=== PATIENT | male | born 1945 | race Two or more races ===

== ENCOUNTER 2021-10-30 11:45 | Inpatient (IN) | payer MEDICARE, MEDICAID ==
[~2021-10-30] VITALS: Ht 167.6 cm; Wt 76.7 kg
[2021-10-30 13:00] LABS: CHLORIDE 105 mEq/L (98-107)
[2021-10-30 13:06] LABS: BASOPHILS % 0.3 % (0.0-2.0); EOSINOPHILS % 1.3 % (0.0-5.0); HEMATOCRIT. 40.3 % (42.0-52.0); HEMOGLOBIN. 13.3 g/dL (14.0-18.0); LYMPHOCYTES % 10.2 % (20.0-50.0); MEAN CORPUSCULAR HEMOGLOBIN 29.9 pg (28.0-32.0); MEAN CORPUSCULAR VOLUME 90.9 fL (80.0-94.0); MEAN PLATELET VOLUME 8.2 fl (7.4-10.4); MONOCYTES % 8.9 % (2.0-8.0); NEUTROPHILS % 79.3 % (40.0-76.0); PLATELET 163 x1000/uL (130-400); RED BLOOD CELL COUNT 4.44 mill/uL (4.7-6.1); RED CELL DISTRIBUTION WIDTH 13.4 % (11.6-14.6)
[2021-10-30] MEDS ORDERED: CEFTRIAXONE 1 G PREMIX 50 ML IV ONE (14:00)
[2021-10-30] MEDS ORDERED: AZITHROMYCIN 500MG/250ML 250 ML IV ONE (14:00)
[2021-10-30] MEDS ORDERED: AZITHROMYCIN 500MG/250ML 250 ML IV NR (18:45)
[2021-10-30] MEDS ORDERED: CEFTRIAXONE 1 G PREMIX 50 ML IV NR (18:45)
[2021-10-31 08:35] VITALS: BP 180/80
[2021-10-31 08:45] VITALS: BP 180/80
[2021-10-31] MEDS ORDERED: IPRATROPIUM/ALBUTEROL 0.5-3(2.5)MG/3ML NEB HHN PRN (09:30)
[2021-10-31] MEDS ORDERED: CLONIDINE 0.1MG TABLET PO PRN (09:30)
[2021-10-31] MEDS ORDERED: PANT40TA51 PO (10:24)
[2021-10-31] MEDS ORDERED: LOSA50TA41 PO (10:24)
[2021-10-31] MEDS ORDERED: WARF-53 MT (10:24)
[2021-10-31] MEDS ORDERED: TAMS-11 PO (10:24)
[2021-10-31] MEDS ORDERED: ISOS10TA2 PO (10:24)
[2021-10-31] MEDS: ASPIRIN 81MG TABLET PO SCH (10:35)
[2021-10-31] MEDS ORDERED: *PATIENT'S OWN MEDICATION STORAGE XX SCH (11:15)
[2021-10-31 12:00] VITALS: BP 154/78
[2021-10-31] MEDS ORDERED: GUAIFENESIN/CODEINE 100-10MG/5ML UDC PO PRN (12:15)
[2021-10-31] MEDS ORDERED: AZITHROMYCIN 500MG/250ML 250 ML IV SCH (12:15)
[2021-10-31] MEDS ORDERED: GUAIFENESIN/CODEINE 200-20MG/10ML UDC PO PRN (12:45)
[2021-10-31 12:50] LABS: D-DIMER 0.58 mg/L FEU (<0.50); INR 1.7; PROTHROMBIN TIME 17.7 sec (9.6-11.0)
[2021-10-31] MEDS ORDERED: HYDRALAZINE 20MG/ML VIAL IV PRN (13:15)
[2021-10-31] MEDS: ISOSORBIDE DINITRATE 10MG TABLET PO SCH ×2 (14:00→17:00)
[2021-10-31] MEDS: LOSARTAN POTASSIUM 50 MG TABLET PO SCH (14:01)
[2021-10-31] MEDS: CEFTRIAXONE 1,000 MG in DEXTROSE 5% WATER 50 ML IV SCH (15:53)
[2021-10-31 16:00] VITALS: BP 136/75
[2021-10-31] MEDS ORDERED: WARFARIN SODIUM 7.5MG TABLET PO SCH (18:00)
[2021-10-31] MEDS: AZITHROMYCIN 500 MG in DEXT 5% WATER 250 ML IV SCH (18:19)
[2021-10-31 20:45] VITALS: BP 104/59
[2021-11-01 00:49] VITALS: BP 128/83
[2021-11-01] MEDS: IPRATROPIUM/ALBUTEROL 0.5-3(2.5)MG/3ML NEB HHN SCH ×3 (01:22→15:29)
[2021-11-01 04:00] VITALS: BP 131/73
[2021-11-01 07:51] LABS: CHLORIDE 104 mEq/L (98-107)
[2021-11-01 08:00] VITALS: BP 131/72
[2021-11-01 08:10] LABS: MEAN CORPUSCULAR HEMOGLOBIN 30.1 pg (28.0-32.0); MEAN CORPUSCULAR VOLUME 90.4 fL (80.0-94.0); MEAN PLATELET VOLUME 8.5 fl (7.4-10.4); PLATELET 160 x1000/uL (130-400); RED BLOOD CELL COUNT 4.65 mill/uL (4.7-6.1); RED CELL DISTRIBUTION WIDTH 13.3 % (11.6-14.6)
[2021-11-01] MEDS: LOSARTAN POTASSIUM 50 MG TABLET PO SCH (08:52)
[2021-11-01] MEDS: ASPIRIN 81MG TABLET PO SCH (08:52)
[2021-11-01] MEDS: ISOSORBIDE DINITRATE 10MG TABLET PO SCH ×2 (08:53→17:49)
[2021-11-01] MEDS ORDERED: PANTOPRAZOLE 40MG DR TABLET PO SCH (09:00)
[2021-11-01] MEDS ORDERED: TAMSULOSIN HCL 0.4MG SR CAPSULE PO SCH (09:00)
[2021-11-01 09:33] LABS: INR 1.4; PROTHROMBIN TIME 15.1 sec (9.6-11.0)
[2021-11-01] MEDS ORDERED: FUROSEMIDE 40MG/4ML VIAL IVP SCH (10:30)
[2021-11-01 12:00] VITALS: BP 95/52
[2021-11-01 13:06] LABS: PLATELET ESTIMATE NORMAL
[2021-11-01 16:00] VITALS: BP 113/65
[2021-11-01 16:45] VITALS: BP 113/65
[2021-11-01] MEDS: CEFTRIAXONE 1,000 MG in DEXTROSE 5% WATER 50 ML IV SCH (16:57)
[2021-11-01] MEDS: AZITHROMYCIN 500 MG in DEXT 5% WATER 250 ML IV SCH (17:49)
[2021-11-01] MEDS ORDERED: WARFARIN SODIUM 7.5MG TABLET PO SCH (18:00)
[2021-11-01] MEDS ORDERED: ATORVASTATIN CALCIUM 20MG TABLET PO SCH (21:00)
== END 2021-11-01 18:55 | disposition home or self-care (01) | DRG 205 ==
LOC: ER 12:39 → CANBEDREQ 17:19 → ENRESERV 10-31 07:13 → 7WST 10-31 08:45
PROVIDERS: ADMIT Internal Medicine; ATTEND Internal Medicine
DX: M94.0 Chondrocostal junction syndrome [Tietze] (principal); J18.9 Pneumonia, unspecified organism; I42.9 Cardiomyopathy, unspecified; I16.0 Hypertensive urgency; N40.0 Benign prostatic hyperplasia without lower urinary tract symptoms; I08.0 Rheumatic disorders of both mitral and aortic valves; Z20.822 Contact with and (suspected) exposure to COVID-19; I10 Essential (primary) hypertension; I27.20 Pulmonary hypertension, unspecified; Z79.01 Long term (current) use of anticoagulants; Z95.1 Presence of aortocoronary bypass graft; Z90.49 Acquired absence of other specified parts of digestive tract; Z95.3 Presence of xenogenic heart valve
CPT/HCPCS: 36415; 71045; 71250; 71275; 80048; 80053; 80061; 83880; 84484; 85025; 85379; 87426; 93005; 93306; 94640; 94664; 99285; J0456; J0696; J1940; J7060

== ENCOUNTER 2024-04-15 11:42 | Emergency (ER) | payer MEDICARE ==
[~2024-04-15] VITALS: Ht 170.2 cm; Wt 77.1 kg
[~2024-04-15 11:42] MED LIST: ENOX40SY27 SQ; WARF-53 MT
[2024-04-15 11:45] VITALS: O2SAT 97
[2024-04-15 11:50] VITALS: BP 163/84; PULSE 79; RESP 16; TEMP 37.1; O2SAT 97
[2024-04-15 14:13] LABS: POTASSIUM 4.5 mEq/L (3.5-5.1)
[2024-04-15 14:14] LABS: CALCIUM 9.2 mg/dL (8.7-10.4)
[2024-04-15 14:19] LABS: CREATININE 1.2 mg/dL (0.6-1.3)
[2024-04-15 14:23] LABS: BASOPHILS % 0.4 % (0.0-2.0); HEMATOCRIT. 40.1 % (42.0-52.0); LYMPHOCYTES % 16.7 % (20.0-50.0); MEAN CORPUSCULAR HEMOGLOBIN 29.6 pg (28.0-32.0); MEAN CORPUSCULAR HGB CONC 32.3 g/dL (31.0-37.0); MEAN CORPUSCULAR VOLUME 91.6 fL (80.0-94.0); MEAN PLATELET VOLUME 8.2 fl (7.4-10.4); MONOCYTES % 11.4 % (2.0-8.0); NEUTROPHILS % 68.5 % (40.0-76.0); PLATELET 190 x1000/uL (130-400); RED BLOOD CELL COUNT 4.37 mill/uL (4.7-6.1); RED CELL DISTRIBUTION WIDTH 13.2 % (11.6-14.6); WHITE BLOOD COUNT 5.1 x1000/uL (4.5-11.0)
== END 2024-04-15 16:15 | disposition home or self-care (01) ==
LOC: ER 11:42
DX: R10.31 Right lower quadrant pain (principal); R59.0 Localized enlarged lymph nodes; I10 Essential (primary) hypertension; Z79.01 Long term (current) use of anticoagulants; Z90.49 Acquired absence of other specified parts of digestive tract; Z95.1 Presence of aortocoronary bypass graft
CPT/HCPCS: 36415; 80048; 85025; 93971; 99284